=== PATIENT | male | born 1960 | race African-American/Black ===

== ENCOUNTER 2017-05-28 17:27 | Inpatient (IN) | payer MEDICAID, OTHER ==
[~2017-05-28] VITALS: Ht 182.9 cm; Wt 124.7 kg
[2017-05-28 19:20] LABS: HEMATOCRIT. 40.6 % (42.0-52.0); HEMOGLOBIN. 13.6 g/dL (14.0-18.0); MEAN CORPUSCULAR HEMOGLOBIN 29.1 pg (28.0-32.0); MEAN CORPUSCULAR VOLUME 86.8 fL (80.0-94.0); MEAN PLATELET VOLUME 9.7 fl (7.4-10.4); PLATELET 189 x1000/uL (130-400); RED BLOOD CELL COUNT 4.68 mill/uL (4.7-6.1); RED CELL DISTRIBUTION WIDTH 14.3 % (11.6-14.6)
[2017-05-28 19:27] LABS: CARBON DIOXIDE 29 mEq/L (21-32); CHLORIDE 106 mEq/L (98-107); INR 1.1; PARTIAL THROMBOPLASTIN TIME 25.4 sec (23.4-31.0); PROTHROMBIN TIME 11.4 sec (9.4-11.6)
[2017-05-28] MEDS ORDERED: LABETALOL HCL 20MG/4ML CARPUJECT IV ONE (20:15)
[2017-05-28 20:42] LABS: PLATELET ESTIMATE NORMAL
[2017-05-28] MEDS ORDERED: CLONIDINE 0.2MG TABLET PO ONE (21:15)
[2017-05-28] MEDS ORDERED: LABETALOL 5MG/ML SYR 20 MG/4 ML SYRINGE IV ONE (21:15)
[2017-05-28] MEDS ORDERED: ZOLPIDEM TARTRATE 5MG TABLET PO PRN (23:00)
[2017-05-28] MEDS ORDERED: LORAZEPAM 2MG/ML CPJ IV PRN (23:00)
[2017-05-28] MEDS ORDERED: MAGNESIUM/ALUMINUM HYDROXIDE/SIMETHICONE 30ML UDC PO PRN (23:00)
[2017-05-28] MEDS ORDERED: NA PHOS,M-B/NA PHOS,DI-BA ENEMA 118ML PR PRN (23:00)
[2017-05-28] MEDS ORDERED: DOCUSATE SODIUM 100MG CAPSULE PO PRN (23:00)
[2017-05-28] MEDS ORDERED: ENOXAPARIN 40MG/0.4ML SYR SUBCUT SCH (23:00)
[2017-05-28] MEDS ORDERED: DIPHENHYDRAMINE 50MG/ML VIAL IV PRN (23:00)
[2017-05-28] MEDS ORDERED: CLONIDINE 0.1MG TABLET PO PRN (23:00)
[2017-05-28] MEDS ORDERED: ONDANSETRON HCL 4MG/2ML VIAL IV PRN (23:00)
[2017-05-28] MEDS ORDERED: GUAIFENESIN 200MG/10ML SUGAR FREE UDC PO PRN (23:00)
[2017-05-28] MEDS ORDERED: IPRATROPIUM/ALBUTEROL 0.5-3(2.5)MG/3ML NEB INH PRN (23:00)
[2017-05-28 23:30] VITALS: BP 163/103
[2017-05-29] MEDS ORDERED: NITROGLYCERIN 0.4MG/HR PATCH TOP SCH (01:00)
[2017-05-29] MEDS: AMLODIPINE 10MG TABLET PO SCH ×2 (01:27→10:00)
[2017-05-29] MEDS: ACETAMINOPHEN 325MG TABLET PO PRN ×2 (01:36→06:31)
[2017-05-29 02:00] VITALS: BP 163/103
[2017-05-29 02:43] VITALS: BP 154/77
[2017-05-29] MEDS: KETOROLAC 15MG/ML VIAL IV PRN ×2 (02:47→08:40)
[2017-05-29 04:00] VITALS: BP 116/61
[2017-05-29] MEDS ORDERED: HYDRALAZINE HCL 50MG TABLET PO SCH (06:00)
[2017-05-29] MEDS ORDERED: HYDR-4134 PO (06:36)
[2017-05-29] MEDS ORDERED: HYDR25TA PO (06:36)
[2017-05-29] MEDS ORDERED: COR12 PO (06:36)
[2017-05-29 07:50] LABS: CREATINE KINASE MB FRACTION 0.7 ng/mL (0.5-3.6); TROPONIN I 0.07 ng/mL (0.00-0.04)
[2017-05-29] MEDS ORDERED: LISINOPRIL 20MG TABLET PO SCH (09:00)
[2017-05-29] MEDS ORDERED: ASPIRIN 325MG EC TABLET PO SCH (09:00)
[2017-05-29] MEDS ORDERED: METOPROLOL TARTRATE 25MG TABLET PO SCH (09:00)
[2017-05-29] MEDS ORDERED: ENOXAPARIN 30MG/0.3ML SYR SUBCUT SCH (09:00)
[2017-05-29] MEDS ORDERED: FAMOTIDINE 20MG/2ML VIAL IV SCH (09:00)
[2017-05-29 11:40] VITALS: BP 128/76
== END 2017-05-29 13:25 | disposition home or self-care (01) | DRG 199 ==
LOC: ER 17:27 → ENRESERV 22:29 → 5WST 22:35 → EDBEDREQTM 22:35 → EDBEDREQ 22:35
PROVIDERS: ADMIT Internal Medicine; ATTEND Internal Medicine
DX: I16.9 Hypertensive crisis, unspecified (principal); N17.0 Acute kidney failure with tubular necrosis; I10 Essential (primary) hypertension
CPT/HCPCS: 36415; 70450; 80048; 82550; 82553; 84484; 85025; 85610; 85730; 93970; 96374; 96376; 99291; G0482; J1650; J1885; J3490

== ENCOUNTER 2017-06-04 14:36 | Emergency (ER) | payer MEDICAID ==
[~2017-06-04] VITALS: Ht 182.9 cm; Wt 100.0 kg
[~2017-06-04 14:36] MED LIST: COR12 PO; HYDR-4134 PO; HYDR25TA PO
[2017-06-04] MEDS ORDERED: LISI2.5T47 PO (14:51)
[2017-06-04] MEDS ORDERED: ONDANSETRON HCL 4MG TABLET PO ONE (18:45)
[2017-06-04] MEDS ORDERED: KETOROLAC 30MG/ML VIAL IV ONE (18:45)
[2017-06-04] MEDS ORDERED: SODIUM CHLORIDE 0.9% 500 ML IV ONE (18:59)
[2017-06-04] MEDS ORDERED: ONDANSETRON HCL 4MG/2ML VIAL IV NR (19:00)
[2017-06-04] MEDS ORDERED: HYDROCODONE/ACETAMINOPHEN 5/325MG TABLET PO SCH (21:15)
[2017-06-04 21:44] VITALS: BP 152/100
== END 2017-06-04 22:06 | disposition home or self-care (01) ==
LOC: ER 14:46
DX: M25.562 Pain in left knee (principal); I10 Essential (primary) hypertension; S09.8XXA Other specified injuries of head, initial encounter; W22.01XA Walked into wall, initial encounter; Y93.89 Activity, other specified; Y92.89 Other specified places as the place of occurrence of the external cause; Y99.8 Other external cause status
CPT/HCPCS: 70450; 72125; 73030; 73560; 96374; 96375; 99284; J1885; J2405; Z7610